=== PATIENT | male | born 1945 ===

== ENCOUNTER 2023-10-10 06:00 | Outpatient (RCR) | payer MEDICARE, SELFPAY | END 2023-11-04 23:59 | disposition home or self-care (01) | LOC: GPT 06:00 | PROVIDERS: Visit Provider Orthopaedic Surgery | DX: Z47.1 Aftercare following joint replacement surgery (principal); Z96.651 Presence of right artificial knee joint | CPT/HCPCS: 97110; 97140; 97161 ==

== ENCOUNTER 2023-11-05 06:00 | Outpatient (RCR) | payer MEDICARE, SELFPAY | END 2023-12-04 23:59 | disposition home or self-care (01) | LOC: GPT 06:00 | PROVIDERS: Visit Provider Orthopaedic Surgery | DX: Z47.1 Aftercare following joint replacement surgery (principal); Z96.651 Presence of right artificial knee joint | CPT/HCPCS: 97110; 97112; 97530 ==

== ENCOUNTER 2023-12-05 06:00 | Outpatient (RCR) | payer MEDICARE, SELFPAY | END 2024-01-04 23:59 | disposition home or self-care (01) | LOC: GPT 06:00 | PROVIDERS: Visit Provider Orthopaedic Surgery | DX: Z47.1 Aftercare following joint replacement surgery (principal); Z96.651 Presence of right artificial knee joint | CPT/HCPCS: 97110; 97530 ==